=== PATIENT | female | born 1980 | race Caucasian/White ===

== ENCOUNTER 2022-11-12 11:16 | Outpatient (CLI) | payer OTHER, SELFPAY | END 2022-11-12 11:17 | disposition home or self-care (01) | PROVIDERS: PCP Family Medicine; Visit Provider Family Medicine | DX: E03.9 Hypothyroidism, unspecified (principal); N95.9 Unspecified menopausal and perimenopausal disorder; Z13.1 Encounter for screening for diabetes mellitus | CPT/HCPCS: 80048; 83001; 84443 ==

== ENCOUNTER 2024-06-13 11:11 | Outpatient (CLI) | payer OTHER, SELFPAY | END 2024-06-13 11:12 | disposition home or self-care (01) | PROVIDERS: PCP Family Medicine; Visit Provider Physician Assistant Medical | DX: E89.0 Postprocedural hypothyroidism (principal); R53.83 Other fatigue; Z13.228 Encounter for screening for other metabolic disorders; Z13.220 Encounter for screening for lipoid disorders | CPT/HCPCS: 80053; 80061; 83001; 84443 ==

== ENCOUNTER 2024-10-19 13:05 | Outpatient (CLI) | payer OTHER, SELFPAY | END 2024-10-19 13:06 | disposition home or self-care (01) | PROVIDERS: Visit Provider Family Medicine | DX: R79.89 Other specified abnormal findings of blood chemistry (principal); E03.9 Hypothyroidism, unspecified; N64.3 Galactorrhea not associated with childbirth; R53.83 Other fatigue | CPT/HCPCS: 84146; 84439; 84443; 84481 ==